=== PATIENT | female | born 1960 | race Caucasian/White ===

== ENCOUNTER 2023-07-10 10:18 | Emergency (ER) | payer MEDICARE, OTHER, SELFPAY ==
[~2023-07-10] VITALS: Ht 162.6 cm; Wt 84.9 kg
[2023-07-10 10:19] VITALS: BP 117/71; TEMP 98.2; O2SAT 96
[2023-07-10] MEDS ORDERED: METH5TA PO (10:38)
[2023-07-10] MEDS ORDERED: WELL200T PO (10:39)
[2023-07-10] MEDS ORDERED: ZONE1CAP PO (10:41)
[2023-07-10] MEDS ORDERED: MELO15TA28 PO (10:41)
[2023-07-10] MEDS ORDERED: GNP250TA9 PO (10:41)
[2023-07-10] MEDS ORDERED: NORCO, ANEXSIA 5/325MG TABLET (HYDROcodone/ACETAMINOPHEN) PO ONE (12:55)
[2023-07-10] MEDS ORDERED: HYDR-3713 PO (13:06)
== END 2023-07-10 19:32 | disposition home or self-care (01) ==
LOC: M ED 10:18
DX: S52.532A Colles' fracture of left radius, initial encounter for closed fracture (principal); S52.615A Nondisplaced fracture of left ulna styloid process, initial encounter for closed fracture; W01.0XXA Fall on same level from slipping, tripping and stumbling without subsequent striking against object, initial encounter; Y92.009 Unspecified place in unspecified non-institutional (private) residence as the place of occurrence of the external cause; Y93.01 Activity, walking, marching and hiking; Y99.8 Other external cause status; J44.9 Chronic obstructive pulmonary disease, unspecified; F17.200 Nicotine dependence, unspecified, uncomplicated; Z79.899 Other long term (current) drug therapy